=== PATIENT | female | born 1995 | race Caucasian/White ===

== ENCOUNTER 2016-04-16 13:57 | Outpatient (CLI) | payer OTHER ==
[~2016-04-16] VITALS: Ht 160 cm; Wt 56.0 kg
[2016-04-16] MEDS ORDERED: PRENTAB9 PO (14:04)
[2016-04-16 14:11] VITALS: BP 114/71
[2016-04-16 15:06] VITALS: BP 120/71
--- NOTE | 2016-04-16 15:44 | IPNPDOC ---
Text Note Date of Service The patient was seen on 04/16/16 at 15:43. NOTE Subjective: Kimberly is a 20yo with a quezada IUP at 37w1d presenting to triage c/o decreased movement. Pt states she did her kick counts and felt nothing . She notes, however, that since presentation to L&D she has felt a lot of movement. No other complaints. ROS: Admits: adequate hydration Denies: fever, chills, vaginal bleeding/discharge/Loss of fluid, urinary symptoms, CTXs, recent illness Objective: VSS NST: FHT 140 with moderate variability, +accels, possible variable decel. Reactive NST. [place]: no CTXs or uterine irritability Physical Exam: General: WDWN gravid female in NAD Mental: A&Ox3 Abdomen: Gravid abdomen without tenderness in any quadrant. TAUS: quezada IUP, positive FCA and FM, placenta anterior, cephalic presentation, DEJAN 11.8cm Assessment: Kimberly is a 20yo with a quezada IUP at 37w1d with active movement on US. DEJAN 11.8cm. Reactive NST without CTXs or uterine irritability. Plan: -f/u as scheduled in OB clinic in one week -kick counts prn. Told pt she wants 10 kicks in two hour time period. -Nurse further educated pt on how to perform kick counts. -encouraged adequate hydration -Discussed term labor and decreased movement precautions -return to L&D triage for any concerns -Medical reconciliation reviewed Dr. Wai Elizondo MD Staff Physician, OBGYN Anna RODRIGES I+O Anna RODRIGES I+O Vital Signs Date Time Temp Pulse Resp B/P Pulse Ox O2 Delivery O2 Flow Rate FiO2 04/16/16 15:06 97.8 90 16 120/71 Room Air WAI ELIZONDO MD Apr 16, 2016 15:43
== END 2016-04-16 15:18 | disposition home or self-care (01) ==
LOC: M LDO 13:57
PROVIDERS: ATTEND Obstetrics & Gynecology
DX: O36.8130 Decreased fetal movements, third trimester, not applicable or unspecified (principal); Z3A.37 37 weeks gestation of pregnancy

== ENCOUNTER 2016-05-09 00:19 | Outpatient (CLI) | payer OTHER ==
[~2016-05-09 00:19] MED LIST: PRENTAB9 PO
[2016-05-09] MEDS ORDERED: UNIS25TA2 PO (14:09)
== END 2016-05-09 01:05 | disposition home or self-care (01) ==
LOC: M LDO 00:19
PROVIDERS: ATTEND Student in an Organized Health Care Education/Training Program
DX: O47.1 False labor at or after 37 completed weeks of gestation (principal); O99.413 Diseases of the circulatory system complicating pregnancy, third trimester; Z3A.40 40 weeks gestation of pregnancy

== ENCOUNTER 2016-05-09 13:48 | Inpatient (IN) | payer OTHER ==
[~2016-05-09] VITALS: Ht 160 cm; Wt 56.0 kg
[2016-05-09] VITALS (30 sets, daily range): BP systolic 110–151; BP diastolic 55–95
[2016-05-09] MEDS ORDERED: UNIS25TA2 PO (14:09)
[2016-05-09] MEDS ORDERED: LACTATED RINGER'S 1000 ML IV STA (15:35)
[2016-05-09] MEDS ORDERED: OXYTOCIN 30 UNITS IN 0.9% NaCl 500ML IV BAG (J2590) As Ordered ONE (15:39)
[2016-05-09 15:56] LABS: MEAN CORPUSCULAR HEMOGLOBIN 26.8 pg (27.0-33.0); MEAN CORPUSCULAR HGB CONC 32.7 g/dl (32.0-36.5); MEAN CORPUSCULAR VOLUME 81.9 fl (80.0-96.0); RED CELL DISTRIBUTION WIDTH 13.5 % (11.5-14.5); WHITE BLOOD COUNT 9.5 K/mm3 (4.0-10.0)
[2016-05-09] MEDS ORDERED: FENTANYL 2MCG/ML ROPIVACAINE 0.2% NACL 250 ML CADD As Ordered ONE (16:01)
[2016-05-09] MEDS ORDERED: EPIDURAL/PCA KEYS XX PRN (17:45)
[2016-05-09] MEDS ORDERED: EPIDURAL COMMENT XX SCH (17:45)
[2016-05-09] MEDS ORDERED: LACTATED RINGER'S 1000 ML IV PRN (17:45)
[2016-05-09] MEDS ORDERED: ONDANSETRON 4MG/2ML VIAL (J2405) IV PRN ×2 (17:45→23:00)
[2016-05-09] MEDS ORDERED: REFRIGERATOR IV KEYS XX PRN (17:45)
[2016-05-09] MEDS ORDERED: NALOXONE INJ 0.4 MG/1 ML VIAL (J2310) IV PRN (17:45)
[2016-05-09] MEDS ORDERED: diphenhydrAMINE INJ 50MG/ML VIAL (J1200) IV PRN (17:45)
[2016-05-09] MEDS ORDERED: ePHEDrine SULFATE 25 MG/5 ML(5MG/ML) SYRINGE IV PRN (17:45)
[2016-05-09] MEDS: FENTANYL/ROPIVACAINE/NACL CADD 250 ML EPIDURAL SCH ×5 (17:45→22:30)
[2016-05-09] MEDS: LR 1,000 ML IV SCH ×3 (18:53→22:28)
[2016-05-09] MEDS ORDERED: OXYTOCIN DRIP 30 UNITS in APPROPRIATE DILUENT 1 EA IV SCH (22:58)
[2016-05-09] MEDS ORDERED: RHOGAM 300 MCG (1500 IU) INJ (J2790) IM SCH (23:00)
[2016-05-09] MEDS ORDERED: METHYLERGONOVINE MALEATE 0.2 MG/ML VIAL (J2210) IM PRN (23:00)
[2016-05-09] MEDS ORDERED: IBUPROFEN 800 MG TAB PO PRN (23:00)
[2016-05-09] MEDS ORDERED: MEASLES,MUMPS,RUBELLA VACCINE INJ (MMR-II) (90707) SC SCH (23:00)
[2016-05-09] MEDS ORDERED: PROMETHAZINE 25 MG TAB PO PRN (23:00)
[2016-05-09] MEDS ORDERED: DIBUCAINE 1% OINTMENT 30GM TOP PRN (23:00)
[2016-05-09] MEDS ORDERED: ACETAMINOPHEN 500 MG TAB PO PRN (23:00)
[2016-05-09] MEDS ORDERED: AMPICILLIN SOD/SULBACTAM SOD 3 GM in D5W MINI-BAG PLUS 100 ML IV ONE (23:15)
[2016-05-10] VITALS (7 sets, daily range): BP systolic 107–138; BP diastolic 55–82
[2016-05-10] MEDS: DOCUSATE SODIUM 100 MG CAP PO SCH ×2 (09:34→21:19)
[2016-05-10] MEDS: PRENATAL VITAMIN TAB PO SCH (09:36)
[2016-05-11 02:06] VITALS: BP 106/52
[2016-05-11 02:18] LABS: MEAN CORPUSCULAR HEMOGLOBIN 25.9 pg (27.0-33.0); MEAN CORPUSCULAR HGB CONC 32.1 g/dl (32.0-36.5); RED CELL DISTRIBUTION WIDTH 13.8 % (11.5-14.5); WHITE BLOOD COUNT 13.9 K/mm3 (4.0-10.0)
[2016-05-11 05:55] VITALS: BP 110/64
--- NOTE | 2016-05-11 07:03 | IPNPDOC ---
Text Note Date of Service The patient was seen on 05/11/16. NOTE prog note on 15FEB at 2239, complicated by chorioamnionitis, baby in NICU but doing well per Mom's report States feeling well, no complaints. Bonding, nursing well, VB slowing, no signif pain, eating, ambulatory. No periods of sweating or chest pain or SOB or palpitations. VS noted for periods of tachycardia. RN thought she was paler than prior so CBC done. UO has been adeq Ut at U-2, firm LE no CCE 0200 Hct 22.8, PLT 169 a/p: Doing well, d/c home likely tomorrow. If has any significant bleeding episodes should be seen for eval due to her borderline HCT. D/W pt. Sessions VS,Anna, I+O VSAnna I+O Laboratory Tests 05/11/16 02:09 Red Blood Count 2.81 L, Mean Corpuscular Volume 81.0, Mean Corpuscular Hemoglobin 25.9 L, Mean Corpuscular Hemoglobin Concent 32.1, Red Cell Distribution Width 13.8 Vital Signs Date Time Temp Pulse Resp B/P Pulse Ox O2 Delivery O2 Flow Rate FiO2 05/11/16 05:55 95.8 91 20 110/64 05/10/16 10:06 97 Room Air I&O- Last 24 Hours up to 6 AM 05/11/16 06:00 Intake Total 960 ml Balance 960 ml SESSIONS,ILIANA Walker MD May 11, 2016 07:03
[2016-05-11] MEDS: DOCUSATE SODIUM 100 MG CAP PO SCH ×2 (09:13→22:53)
[2016-05-11] MEDS: PRENATAL VITAMIN TAB PO SCH (09:13)
[2016-05-11 12:07] VITALS: BP 130/85
[2016-05-11 18:05] VITALS: BP 123/71
[2016-05-11 23:29] VITALS: BP 122/61
[2016-05-12 02:28] VITALS: BP 96/46
[2016-05-12 06:45] VITALS: BP 123/58
[2016-05-12] MEDS: DOCUSATE SODIUM 100 MG CAP PO SCH (09:02)
[2016-05-12] MEDS: PRENATAL VITAMIN TAB PO SCH (09:03)
[2016-05-12] MEDS ORDERED: COLA100C PO (09:36)
[2016-05-12] MEDS ORDERED: IBUP-1114 PO (09:37)
[2016-05-12] MEDS ORDERED: ACET50TA PO (09:37)
[2016-05-12] MEDS ORDERED: NUPE1OIN2 TOP (09:40)
--- NOTE | 2016-05-14 09:08 | DSES ---
DATE OF ADMISSION: 05/09/2016 DATE OF DISCHARGE: 05/12/2016 This lady is a 20-year-old 1 admitted in active labor at 40 and 3 weeks of gestation, had a spontaneous vaginal delivery, male , 6 pounds 9 ounces, 2998 grams, scores of 8 and 9 at one and five minutes, respectively. She herself had a transposition of the great vessels repaired as an . She sustained a first-degree tear which was repaired. Admitting hemoglobin 10.4, hematocrit 31.8, platelets 220. Discharge hemoglobin 7.3, hematocrit 22.8, platelets 169. She is asymptomatic with her anemia at the present time. Blood pressure today is 123/58, respirations 16, pulse is 73, temperature 96.8. The patient is requesting a breast pump. We gave her a prescription for a breast pump. We discussed phlebitis, cystitis, mastitis, endometritis and cellulitis, diet, exercise, pain management, perineal, breast and wound care. She is uncertain as to method of control, we will discuss that at her 6 weeks checkup. The rest of the examination is unremarkable. She is normocephalic, atraumatic. Neck full range of motion. Pupils equal and reactive to light. Thyroid is normal. No jugular venous distention (JVD), bruits. Lungs are clear bilaterally to bases. No wheezes or rhonchi. No costovertebral angle (CVA) tenderness. Uterus two below. Lochia is moderate. Perineum appears to be intact. No rashes, lesions or pruritus. No arthralgia, myalgia. No complaints of cough, wheezes, shortness of breath or dyspnea on exertion. No chest pain. Not bleeding. Neurologically complete. No incontinency, urgency, or frequency. No nausea, vomiting, diarrhea or constipation. She does not smoke or drink, does not abuse drugs. She is . There is no domestic violence. No family history contributory. In summary, we have a term gestation, delivered a live male infant for discharge. Baby has been discharge from the intensive care unit (NICU). The patient has been given her medications and a breast pump prescription and she will decide on control at 6 weeks' time.
== END 2016-05-12 09:45 | disposition home or self-care (01) | DRG 775 ==
LOC: M LDI 13:48 → M OBS 05-10 00:38
PROVIDERS: ADMIT Obstetrics & Gynecology; ATTEND Obstetrics & Gynecology
PROC: 10E0XZZ Delivery of Products of Conception, External Approach (ICD-10-PCS; principal; 2016-05-09)
PROC: 0HQ9XZZ Repair Perineum Skin, External Approach (ICD-10-PCS; 2016-05-09)
DX: O48.0 Post-term pregnancy (principal); O41.1230 Chorioamnionitis, third trimester, not applicable or unspecified; O99.52 Diseases of the respiratory system complicating childbirth; Z3A.40 40 weeks gestation of pregnancy; J45.909 Unspecified asthma, uncomplicated; Z79.51 Long term (current) use of inhaled steroids; O70.0 First degree perineal laceration during delivery; Z37.0 Single live birth

== ENCOUNTER 2016-10-11 13:44 | Emergency (ER) | payer OTHER ==
[~2016-10-11] VITALS: Ht 160 cm; Wt 50.4 kg
[~2016-10-11 13:44] MED LIST changes: +ACET50TA PO; +COLA100C5 PO; +IBUP-1114 PO; +NUPE1OIN2 TOP; +UNIS25TA2 PO
[2016-10-11] MEDS ORDERED: ACETAMINOPHEN 325 MG TAB PO ONE (14:45)
[2016-10-11] MEDS ORDERED: ROBA500T PO (15:49)
--- NOTE | 2016-10-11 15:53 | REP ---
Chest two views HISTORY: Chest pain Comparison: None The lungs are hyperinflated. The lungs are clear. The heart is normal in size. The pulmonary vasculature is normal in appearance. The bony structure is intact. IMPRESSION: No acute disease. Signed by Natalio Crawford MD 10/11/2016 03:44 P
[2016-10-11 15:56] VITALS: BP 129/66
--- NOTE | 2016-10-12 07:33 | ECGEPIP ---
Stationary ECG Study [facility] - ED Test Date: 2016-10-11 Pat Name: WILLIAM BLANC Department: Room: - Gender: F Interface Control Officer: nadine : 1995 Requested By: Thomas Ortega Order Number: [id number] Reading MD: Flaquita Phan Measurements Intervals Norris Rate: 74 P: 68 HI: 135 QRS: 98 QRSD: 82 T: 5 QT: 346 QTc: 386 Interpretive Statements SINUS RHYTHM BORDERLINE RIGHT AXIS DEVIATION POSSIBLE RIGHT VENTRICULAR CONDUCTION DELAY NO PRIOR FOR COMPARISON Electronically Signed On 10-12-2016 7:33:08 EDT by Flaquita Phan
== END 2016-10-11 16:02 | disposition home or self-care (01) ==
LOC: M ED 13:44
DX: S29.011A Strain of muscle and tendon of front wall of thorax, initial encounter (principal); X58.XXXA Exposure to other specified factors, initial encounter; Y92.89 Other specified places as the place of occurrence of the external cause; Y93.89 Activity, other specified; Y99.9 Unspecified external cause status